=== PATIENT | male | born 1960 | race African-American/Black ===

== ENCOUNTER → 2024-03-02 15:28 | Outpatient (REF) | payer BC, SELFPAY | LOC: RAD 15:28 | PROVIDERS: ATTENDING PHYSICIAN Registered Nurse | DX: R06.09 Other forms of dyspnea (principal) | CPT/HCPCS: 71046 ==

== ENCOUNTER 2024-03-03 03:05 | Inpatient (IN) | payer BC, SELFPAY ==
[2024-03-02 22:39] VITALS: BP 84/61
[2024-03-02 22:57] LABS: % Basophils 0.4 % (0-2); % Eosinophils 0.3 % (0-6); % Immature Granulocytes 0.5 % (0-0.5); % Lymphocytes 3.3 % (20.5-51.1); % Monocytes 11.3 % (1.7-9.3); % Neutrophils 84.2 % (42.2-75.2); Absolute Basophils 0.1 10^3/uL (0-0.2); Absolute Immature Granulocytes 0.1 10^3/uL (0-0.05); Absolute Lymphocytes 0.4 10^3/uL (1.2-3.4); Absolute Monocytes 1.3 10^3/uL (0.1-0.6); Hematocrit 36.6 % (39.0-52.0); Hemoglobin 13.5 g/dL (13.0-18.0); Mean Corp Hgb Conc. 36.9 g/dL (33.0-37.0); Mean Corpuscular Hgb 29.5 pg (27.0-31.0); Mean Corpuscular Volume 80.1 fL (80.0-94.0); Mean Platelet Volume 9.6 fL (7.4-10.4); Nucleated Red Blood Cells % 0 % (-); Platelet Count 186 10^3/uL (130-400); Red Blood Cell Count 4.57 10^6/uL (4.70-6.10); Red Cell Dist. Width 13.6 % (11.5-14.5); White Blood Cell Count 11.9 10^3/uL (4.8-10.8)
[2024-03-02 23:00] VITALS: BP 106/64
[2024-03-02 23:10] LABS: Lactic Acid 1.1 mmol/L (0.7-2.0)
[2024-03-02 23:27] LABS: ALT (SGPT) 102 U/L (0-50); AST (SGOT) 131 U/L (17-59); Albumin 3.6 g/dl (3.5-5.0); Alkaline Phosphatase 81 U/L (38-126); Blood Urea Nitrogen 18 mg/dl (9-20); Calcium 8.9 mg/dl (8.4-10.2); Carbon Dioxide 24 mmol/L (22-30); Chloride 102 mmol/L (98-107); Glucose 183 mg/dl (70-99); Potassium 4.3 mmol/L (3.5-5.1); Sodium 134 mmol/L (135-145); Total Bilirubin 0.9 mg/dl (0.2-1.3); Total Protein 6.6 g/dl (6.3-8.2); eGFR > 60.00
[2024-03-02] MEDS: MOTRIN 800 MG PO (23:46)
--- NOTE | 2024-03-02 23:46 | ED.GENMED ---
History of Present Illness
General
Chief Complaint: Fever
Source: patient, spouse and previous radiology exam (Chest x-ray performed earlier today showing right lower lobe infiltrate)
Exam Limitations: none
Time Seen by Provider: 03/02/24 23:07
Nursing documentation reviewed up to this point in time: agreed with
History of Present Illness
History of Present Illness:
This is a 63-year-old gentleman who has history of pir-mmrxvry-lbjrwcnls diabetes, hypertension who complains of generalized aches, fatigue, intermittent headache that began 4 days ago. Symptoms have been progressive throughout the week and he was
evaluated by his primary care physician today, had outpatient blood work including a Lyme titer and had an outpatient chest x-ray done at the hospital today. He does admit to mild dry cough that began today but denies nasal congestion or sore
throat. No chest pain or abdominal pain, no dysuria no urgency and or hematuria. No flank pain. No nausea nor vomiting. He has not noticed a rash.
No close contacts with similar symptoms. No recent travel.
No history of similar episodes in the past.
He was unaware that he was running a fever until checking his temperature last night, he believes he has been running a fever since symptom onset on Tuesday.
He took Tylenol, 2 tablets at 9 PM tonight.
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 Gamboa. Has not required treatment as yet.
2 home COVID tests have been negative.
Past History
Past History
ED Past Medical History: Cancer (Smoldering multiple myeloma), HTN and NIDDM
ED Past Surgical History: None
Social History
Tobacco: Non-smoker
Alcohol: None
Drug: None
Personal:
Living: with family
Employment: Retired
Family History
Family History: Other (None retired)
Phy Exam
Physical Exam
Physical Exam:
GENERAL: 63-year-old gentleman appears somewhat younger than stated age, bright and alert, pleasant, appears in no acute distress. Moderately febrile, mild hypotension noted initially, has improved to 106/64. is accompanying.
EYE: pupils equal and reactive. anicteric
NECK: Supple, nontender, no meningismus, no significant adenopathy.
ENT: posterior pharynx is clear, oral mucosa is moist. TM clear b/l, nares patent.
CARDIAC: Regular rate and rhythm. no murmur.
LUNGS: no acute respiratory distress, mildly decreased breath sounds at bases with scant intermittent fine rales right base otherwise clear to auscultation.
ABDOMEN: Soft, nondistended, without focal tenderness, no r/g, no cvat. normoactive BS.
NEUROLOGICAL: Alert and oriented x3, no focal neuro deficits. Gait is steady.
SKIN: Warm and dry, normal color, skin intact. No rash.
MUSCULOSKELETAL: No C/C/E. peripheral pulses are full and equal b/l. No palpable tenderness.
PSYCH: Normal and appropriate interaction.
Course
Orders/Labs/Results
Orders:
Orders
03/02/24 22:46
Electrocardiogram (*1) Urgent
Reason for Study: Other
Other Reason for Exam: Possible Sepsis
EKG- Treatment ONCE
03/02/24 22:50
Complete Blood Count/With Diff Urgent
Comprehensive Metabolic Panel Urgent
Lactic Acid Q4H
Comment: ON ICE, CANCEL 2ND ORDER IF FIRST LACTIC ACID LEVEL <2
03/02/24 23:22
0.9% Sodium Chloride 1000 ml [Nss] 1,000 ml IV BOLUS
Ibuprofen [Motrin] 800 mg PO NOW STA
03/02/24 23:45
Azithromycin 500 mg/250 ml [Zithromax Infusion] 500 mg in 250 ml IV NOW
CefTRIAXone [Rocephin] 1,000 mg IV NOW STA
03/02/24 23:49
COVID-19 Antigen Urgent
Source: Nasal Swab
Urinalysis Reflex To Culture Urgent
Date Specimen was Collected: 03/02/24
Time Specimen was Collected: 23:22
Blood Culture Urgent
[place] Source: Blood/Venous
Specimen Description:
Influenza A+B Rapid Molecular Urgent
[place] Source: Nasal Swab
Specimen Description:
03/03/24 00:03
Sterile Water [Sterile Water For Injection] 10 ml .ROUTE .STK-MED ONE
03/03/24 01:36
NSS 1000mL Bolus WIDE OPEN 0.9% Sodium Chloride 1000 ml [Nss] 1,000 ml IV BOLUS
03/03/24 03:00
Lactic Acid Q4H
Comment: ON ICE, CANCEL 2ND ORDER IF FIRST LACTIC ACID LEVEL <2
Abnormal Lab Results
03/02/24
22:50
WBC 11.9 H 10^3/uL
(4.8-10.8)
RBC 4.57 L 10^6/uL
(4.70-6.10)
Hct 36.6 L %
(39.0-52.0)
Abs Immat Gran (auto) 0.1 H 10^3/uL
(0-0.05)
Absolute Neuts (auto) 10.0 H 10^3/uL
(1.4-6.5)
Absolute Lymphs (auto) 0.4 L 10^3/uL
(1.2-3.4)
Absolute Monos (auto) 1.3 H 10^3/uL
(0.1-0.6)
Neutrophils % 84.2 H %
(42.2-75.2)
Lymphocytes % 3.3 L %
(20.5-51.1)
Monocytes % 11.3 H %
(1.7-9.3)
Sodium 134 L mmol/L
(135-145)
Glucose 183 H mg/dl
(70-99)
AST 131 H U/L
(17-59)
ALT 102 H U/L
(0-50)
03/02/24 22:50
03/02/24 22:50
Vital Signs
Initial and Last Documented VS:
Initial Vital Signs
Temp Pulse Resp BP Pulse Ox
101.5 F H 90 24 84/61 95
03/02/24 22:39 03/02/24 22:39 03/02/24 22:39 03/02/24 22:39 03/02/24 22:39
Last Documented Vital Signs
Temp Pulse Resp BP Pulse Ox
99.1 F 78 33 97/62 94
03/03/24 01:26 03/03/24 00:45 03/03/24 00:45 03/03/24 00:30 03/03/24 00:45
MDM/Problems Addressed
Differential Diagnosis Includes:
Acute febrile illness, concern for SIRS/sepsis, pneumonia, viral syndrome, UTI.
History of multiple myeloma/early, thus far has not required treatment but certainly at risk for immunocompromise especially with history of diabetes as well.
Will check labs, blood culture, lactic acid, initiate IV fluid bolus and give a dose of ibuprofen for fever.
Will check COVID and influenza as well for completeness sake.
Outpatient chest x-ray performed earlier today shows a small right lower lobe infiltrate.
Chronic conditions affecting care: DM, HTN and Immunosuppressed (Multiple myeloma)
*Radiology
Radiology exam reviewed: radiology read reviewed (Chest x-ray from earlier today shows right lower lobe infiltrate)
*Pulse Oximetry
Patient hypoxic: no
*EKG
Interpreted by ED Provider?: Yes
Comparison EKG: no comparison EKG present
Rate: normal
Rhythm: sinus and PVC's
Leupp: normal axis
Interval: normal interval
QRS Pattern: other (Minimal nonspecific interventricular conduction delay)
Ischemia: no ischemia
*Supervisor [employer] Interpretation
Rate: normal
Interpretation: normal
Rhythm: sinus and PVC's
*Critical Care Note
Total Time (30-74mins, 75-104mins- exclusive of procedures): Not Applicable
Update Note
Update Note:
Labs show elevated white blood cell count of 11.9. Moderately elevated LFTs in the low 100s. Lactic acid is normal at 1.1.
COVID and influenza testing are negative as expected.
IV Rocephin and Zithromax initiated for treatment of community-acquired pneumonia.
Patient remains borderline hypotensive with systolic blood pressure in the 90s.
Fever improving.
Due to borderline hypotension we will continue IV fluids and plan to admit to hospitalist service.
ED Attending Note
-
Portions of this chart may have been created with voice recognition software.� Occasional wrong word or��sound alike� substitutions may have occurred due to the inherent limitations of voice recognition software.
Discharge Plan
Departure
Patient Disposition: Admit
Date of Disposition: 03/03/24
Time of Disposition: 01:41
Admit to: Med/Surg
Admit to doctor: Tayo
Presentation/result/management discussed w/ accepting MD/DO: Hospitalist
Condition: Serious
Discharge Problem:
CAP (community acquired pneumonia), SIRS (systemic inflammatory response syndrome)
Prescriptions:
No Action
atorvastatin 10 mg Tablet
10 mg PO DAILY
metformin 1,000 mg Tablet
500 mg PO BID
losartan 100 mg Tablet
100 mg PO DAILY
Referrals:
Myles Grant CRNP [Family Provider] -
Interventions
Interventions:
*Risk Screen - Suicide Last Done: 03/02/24 22:39
*General Assessment Last Done: 03/02/24 22:39
*Neglect/Abuse Screening Last Done: 03/02/24 22:39
ED- Fall Risk Assessment Last Done: 03/03/24 00:35
ED- Neurological Assessment Last Done: 03/03/24 00:35
ED-Skin Assessment Last Done: 03/03/24 00:35
Discharge Date and Time
Print Language: SLOVAK
[2024-03-03] VITALS (22 sets, daily range): BP systolic 94–147; BP diastolic 54–78; BMI 27.7
[2024-03-03] MEDS: NSS 1000 IV ×4 (00:07→14:45)
[2024-03-03] MEDS: ZITHROMAX INFUSION 250 IV (00:07)
[2024-03-03] MEDS: ROCEPHIN 1000 MG IV (00:07)
[2024-03-03 00:22] LABS: COVID-19 Antigen Negative (Negative)
[2024-03-03 01:38] LABS: Urine Albumin Trace (Neg - Trace); Urine Bilirubin Negative (Negative); Urine Character Clear (Clear); Urine Color Amber; Urine Glucose Negative (Negative); Urine Ketone Trace (Negative); Urine Leukocyte Trace (Negative); Urine Nitrite Negative (Negative); Urine Occult Blood Negative (Negative); Urine Specific Gravity 1.015 (<1.030); Urine Urobilinogen 1+ (Neg - 1+)
[2024-03-03 02:09] LABS: Urine Amorphous Seen; Urine Squamous Cell >30 /LPF (Few)
[2024-03-03 02:10] LABS: Urine Bacteria Moderate (Negative); Urine Granular Cast 0-1 /LPF (0); Urine Red Blood Cell 0-2 /HPF (0-2)
--- NOTE | 2024-03-03 02:53 | HPS.HSE ---
Family Physician
-
Family Physician: MAINE Mayer
Chief Complaint
-
Weakness / Fatigue / Fever
History of Present Illness
Patient is a 63y M with PMH significant for hypertension, DM-II and smoldering myeloma who presents to ED complaining of weakness, fatigue x 1 week and fever / cough starting today. Patient states that he has felt very fatigued all week. He has
been going to be around 7 PM nightly. He initially had no other symptoms including sore throat, cough, fever, GI or complaints. He was seen by his PCP and labs / CXR were requested. CXR showed R base infiltrate and patient was started on
azithromycin and Augmentin (first doses today).
Patient continued to feel poorly this evening and had fever at home to 102. He began to have hacking,non-productive cough and presented to the ED for evaluation.
Medical History
Past Medical History
Past Medical History: Reports Other
Additional Past Medical History:
DM-II
Hypertension
Smoldering Myeloma
Discoid Lupus
Sickle Cell Trait
Past Surgical History: Reports Other
Additional Past Surgical History:
Bone Marrow Biopsy
Cataracts
Social History
Tobacco: Non-smoker
Alcohol: Occasional
Drug: None
Personal:
Living: With Family
Family History
Family History: Other (Father: HTN, Kidney Disease, CHF Mother: Myeloma, Kidney Disease, CHF)
Allergies / Home Medications
Allergies reflects when Allergies were last updated in [employer].
Home Medications with original date entered in [employer]
Allergy/Medication List:
Allergies
Allergy/AdvReac Type Severity Reaction Status Date / Time
No Known Allergies Allergy Unverified 03/02/24 22:45
Home Medications
atorvastatin 10 mg tablet 10 mg PO DAILY 03/03/24
losartan 100 mg tablet 100 mg PO DAILY 03/03/24
metformin 1,000 mg tablet 500 mg PO BID 03/03/24
Review of Systems
-
History Source: Patient
A 12 point ROS was completed and negative except as noted: Yes
Constitutional: Reports Fever, Fatigue and Chills
EENT: Denies Sore Throat
Respiratory: Reports Cough; Denies Hemoptysis or Trouble Breathing
Cardiac: Denies Chest Pain or Palpitations
Abdomen/GI: Denies Abdominal Pain, Nausea, Vomiting or Diarrhea
: Denies Dysuria, Frequency or Flank Pain
Musculoskeletal: Denies Joint Pain or Muscle Pain
Neurological: Reports Headache; Denies Dizzy
Psych: Denies Depression or Anxiety
Physical Exam
Vital Signs
Vital Signs
Temp Pulse Resp BP Pulse Ox
99.1 F 71 20 96/61 96
03/03/24 01:26 03/03/24 02:45 03/03/24 02:45 03/03/24 02:30 03/03/24 02:45
Physical Exam
General: Other (63y M in no acute distress.)
HEENT: Moist mucous membranes and PERRLA
Respiratory: Other (Coarse breath sounds over the R base. No wheezing.)
Cardiac: S1/S2 and Regular Rhythm; No Murmur
GI: Soft, Non Tender, Non Distended and Normal Bowel Sounds
Musculoskeletal: No Clubbing, No Cyanosis and No Edema
Neuro: AO x 3
Laboratory Results
-
03/02/24 22:50
03/02/24 22:50
Laboratory Results
Lactic Acid 1.1 mmol/L (0.7-2.0) 03/02/24 22:50
Total Bilirubin 0.9 mg/dl (0.2-1.3) 03/02/24 22:50
AST 131 U/L (17-59) H 03/02/24 22:50
ALT 102 U/L (0-50) H 03/02/24 22:50
Alkaline Phosphatase 81 U/L (38-126) 03/02/24 22:50
Impression/Plan
-
A/P: Patient is a 63y M with PMH significant for hypertension, DM-II and smoldering myeloma who presents to ED complaining of fatigue, fever and cough.
RLL Pneumonia
Sepsis secondary to the above
- Admit for further evaluation and treatment.
- Patient presents with fever, leukocytosis and tachypnea with CXR showing R base pneumonia.
- Borderline hypotensive in the ED.
- IV abx for CAP.
- IVF support.
- Supportive care including nebs, mucolytics, etc.
- Follow for clinical improvement and transition back to PO medications once afebrile / BP stable / etc.
- Follow for any new / worsening symptoms.
DM-II
- Stable. Hold PO meds acutely.
- Follow glucose and cover with SSI as needed.
- Update A1C.
Benign Hypertension
- Presently somewhat hypotensive due to infection / sepsis.
- Hold losartan acutely.
- Resume if / when appropriate.
Smoldering Myeloma
- Stable. Followed at [facility]. Not on active therapy at this time.
- Follow-up with [facility] Oncology as planned.
Abnormal LFTs
- ? etiology. ? chronicity
- No prior labs to compare.
- Potentially related to acute presentation / infection.
- No GI symptoms at present.
- Follow for changes in LFTs.
DVT Prophylaxis: Lovenox
Code Status: Full
[2024-03-03] MEDS: MUCINEX 1200 MG PO ×2 (09:19→20:14)
[2024-03-03] MEDS: VIBRAMYCIN 100 MG PO ×2 (09:19→20:14)
[2024-03-03] MEDS: LIPITOR 10 MG PO (09:20)
[2024-03-03 09:26] LABS: Glucose - Point of Care 174 mg/dl (70-99)
[2024-03-03] MEDS: TYLENOL 650 MG PO ×2 (09:30→17:13)
[2024-03-03] MEDS: NOVOLOG FLEXPEN-LOW RESISTANCE SC ×3 (10:00→18:10)
--- NOTE | 2024-03-03 10:08 | W.PN.HOSP.TC ---
Today's Communication/Plan
-
Continue IV antibiotics pending cultures
Hold antihypertensive monitoring for recurrent hypotension
Continue IV fluids
Incentive spirometry.
Follow LFT pattern.
Assessment / Plan
Assessment / Plan
Impression:
Patient is a 63y M with PMH significant for hypertension, DM-II and smoldering myeloma who presents to ED complaining of fatigue, fever and cough.
Right lower lobe pneumonia, community-acquired
Sepsis secondary to above
Type 2 diabetes.
Benign hypertension.
Smoldering myeloma under surveillance.
Abnormal LFTs.
Plan
RLL Pneumonia
Sepsis secondary to the above
- Admit for further evaluation and treatment.
- Patient presents with fever, leukocytosis and tachypnea with CXR showing R base pneumonia.
- Borderline hypotensive in the ED.
- IV abx for CAP.
- IVF support.
- Supportive care including nebs, mucolytics, etc.
- Follow for clinical improvement and transition back to PO medications once afebrile / BP stable / etc.
- Follow for any new / worsening symptoms.
DM-II
- Stable. Hold PO meds acutely.
- Follow glucose and cover with SSI as needed.
- Update A1C.
Benign Hypertension
- Presently somewhat hypotensive due to infection / sepsis.
- Hold losartan acutely.
- Resume if / when appropriate.
Smoldering Myeloma
- Stable. Followed at [facility]. Not on active therapy at this time.
- Follow-up with [facility] Oncology as planned.
Abnormal LFTs
- ? etiology. ? chronicity
- No prior labs to compare.
- Potentially related to acute presentation / infection.
- No GI symptoms at present.
- Follow for changes in LFTs.
DVT Prophylaxis: Lovenox
Code Status: Full
Anticipated Discharge: 24 - 48 hours
Subjective/Interval History
-
Date of Service: March 03, 2024
Objective Data
-
Labs:
Laboratory Results
03/02/24
22:50
WBC 11.9 H
Hgb 13.5
Hct 36.6 L
Plt Count 186
Sodium 134 L
Potassium 4.3
Chloride 102
Carbon Dioxide 24
BUN 18
Creatinine 1.1
Glucose 183 H
Calcium 8.9
Total Bilirubin 0.9
AST 131 H
ALT 102 H
Alkaline Phosphatase 81
Vital Signs:
Vital Signs
Temp Pulse Resp BP Pulse Ox
98.8 F 68 28 111/74 95
03/03/24 09:13 03/03/24 09:13 03/03/24 09:13 03/03/24 09:13 03/03/24 10:03
Physical Exam
-
General: Well Developed and No Apparent Distress
HEENT: Normocephalic, Atraumatic and Moist Mucous Membranes
Respiratory: Other (Bronchial breath sounds at the right base.)
Cardiac: Regular Rhythm and S1/S2; Negative Murmur, Rub or Gallop
GI: Soft, Nontender, Nondistended and Normal Bowel Sounds; Negative Organomegaly
Rectal: Deferred by Provider
Musculoskeletal: No Clubbing, No Cyanosis and No Edema
Skin: Negative Rash
Neuro: Nonfocal/Grossly Intact
[2024-03-03 13:06] LABS: Glucose - Point of Care 132 mg/dl (70-99)
--- NOTE | 2024-03-03 16:25 | PTCARENOTE ---
Report called to Felipe on 3W. Patient continues to feel weak and not much of an appetite. Patient ambulating in room with supervision.
[2024-03-03] MEDS: LOVENOX 40 MG SC (17:13)
[2024-03-03 17:21] LABS: Glucose - Point of Care 157 mg/dl (70-99)
[2024-03-03 21:07] LABS: Glucose - Point of Care 163 mg/dl (70-99)
[2024-03-04] MEDS: ROCEPHIN 1000 MG IV (00:30)
[2024-03-04] MEDS: STERILE WATER FOR INJECTION 10 ML IV (00:31)
[2024-03-04] MEDS: NSS 1000 IV (02:15)
[2024-03-04 03:08] VITALS: BP 116/67
[2024-03-04 06:00] VITALS: BMI 27.6
[2024-03-04 07:04] LABS: Hematocrit 33.9 % (39.0-52.0); Hemoglobin 12.4 g/dL (13.0-18.0); Mean Corp Hgb Conc. 36.6 g/dL (33.0-37.0); Mean Corpuscular Hgb 29.9 pg (27.0-31.0); Mean Corpuscular Volume 81.7 fL (80.0-94.0); Mean Platelet Volume 10.3 fL (7.4-10.4); Platelet Count 211 10^3/uL (130-400); Red Blood Cell Count 4.15 10^6/uL (4.70-6.10); Red Cell Dist. Width 13.9 % (11.5-14.5); White Blood Cell Count 10.7 10^3/uL (4.8-10.8)
[2024-03-04 07:10] VITALS: BP 123/74
[2024-03-04 07:10] LABS: Glucose - Point of Care 143 mg/dl (70-99)
[2024-03-04 07:27] LABS: Blood Urea Nitrogen 18 mg/dl (9-20); Carbon Dioxide 21 mmol/L (22-30); Chloride 107 mmol/L (98-107); Estimated Creatinine Clearance 75 ml/min; Glucose 137 mg/dl (70-99); Potassium 4.1 mmol/L (3.5-5.1); Sodium 137 mmol/L (135-145); eGFR > 60.00
[2024-03-04] MEDS: NOVOLOG FLEXPEN-LOW RESISTANCE SC ×2 (08:03→17:19)
[2024-03-04] MEDS: MUCINEX 1200 MG PO ×2 (08:08→20:48)
[2024-03-04] MEDS: VIBRAMYCIN 100 MG PO ×2 (08:08→20:48)
[2024-03-04] MEDS: LIPITOR 10 MG PO (08:08)
[2024-03-04 11:00] VITALS: BP 135/71
--- NOTE | 2024-03-04 11:32 | W.PN.HOSP.TC ---
Today's Communication/Plan
-
recheck CXR in AM
cont rocephin/doxy
Assessment / Plan
Assessment / Plan
Impression:
Patient is a 63y M with PMH significant for hypertension, DM-II and smoldering myeloma who presents to ED complaining of fatigue, fever and cough.
Right lower lobe pneumonia, community-acquired
Sepsis secondary to above
Type 2 diabetes.
Benign hypertension.
Smoldering myeloma under surveillance.
Abnormal LFTs.
Plan
03/05/24 -- cont rocephin/doxy--tubular breath sounds on exam--recheck CXR in AM--stop IVF--cough meds if needed
RLL Pneumonia
Sepsis secondary to the above
- Admit for further evaluation and treatment.
- Patient presents with fever, leukocytosis and tachypnea with CXR showing R base pneumonia.
- Borderline hypotensive in the ED.
- IV abx for CAP.
- IVF support.
- Supportive care including nebs, mucolytics, etc.
- Follow for clinical improvement and transition back to PO medications once afebrile / BP stable / etc.
- Follow for any new / worsening symptoms.
DM-II
- Stable. Hold PO meds acutely.
- Follow glucose and cover with SSI as needed.
- Update A1C.
Benign Hypertension
- Presently somewhat hypotensive due to infection / sepsis.
- Hold losartan acutely.
- Resume if / when appropriate.
Smoldering Myeloma
- Stable. Followed at [facility]. Not on active therapy at this time.
- Follow-up with [facility] Oncology as planned.
Abnormal LFTs
- ? etiology. ? chronicity
- No prior labs to compare.
- Potentially related to acute presentation / infection.
- No GI symptoms at present.
- Follow for changes in LFTs.
DVT Prophylaxis: Lovenox
Code Status: Full
Anticipated Discharge: Within 24 hours
Subjective/Interval History
-
Date of Service: March 04, 2024
pt c/o being cold and doesn't feel well, nonproductive cough
Objective Data
-
Labs:
Laboratory Results
03/04/24
05:40
WBC 10.7
Hgb 12.4 L
Hct 33.9 L
Plt Count 211
Sodium 137
Potassium 4.1
Chloride 107
Carbon Dioxide 21 L
BUN 18
Creatinine 1.0
Glucose 137 H
Calcium 8.0 L
Vital Signs:
max temp for 24 hours
03/03/24
16:43
Temp 102.9 F H
Vital Signs
Temp Pulse Resp BP Pulse Ox
100.9 F H 68 18 123/74 96
03/04/24 07:10 03/04/24 07:10 03/04/24 07:10 03/04/24 07:10 03/04/24 07:10
I&O
03/03/24 03/04/24 03/05/24
06:59 06:59 06:59
Intake Total 240 / 240
Output Total 420 / 420
Balance -180 / -180
Review of Systems
-
All other systems: Reviewed and negative
Constitutional: Reports Chills
Respiratory: Reports Cough (nonprodective)
Physical Exam
-
General: Well Developed, Well Nourished and No Apparent Distress
HEENT: Normocephalic and Atraumatic
Respiratory: Other (tubular breath sounds right lung field)
Cardiac: Regular Rhythm and S1/S2; Negative Murmur
GI: Soft, Nontender, Nondistended and Normal Bowel Sounds
Musculoskeletal: No Clubbing, No Cyanosis and No Edema
Neuro: Awake and Alert
[2024-03-04] MEDS: NSS IV (11:34)
[2024-03-04 11:48] LABS: Glucose - Point of Care 228 mg/dl (70-99)
[2024-03-04] MEDS: NOVOLOG FLEXPEN-LOW RESISTANCE 2 UNITS SC (12:36)
--- NOTE | 2024-03-04 14:34 | PTCARENOTE ---
Pt is alert and oriented x3. Denies any pain. Tolerating diet well. Pt is just a standby assist, rings appropriately. Pt with no complaints other than feeling fatigued. Pt continues on 2L O2 NC, trialed off but O2 91% RA. VSS. Pt with no complaints
at this time. Call paige is within reach.
--- NOTE | 2024-03-04 14:57 | CM ---
Met with patient; initial assessment completed
Pharmacy verified: [facility], [address], [place]
Patient and spouse live in a multilevel home; 3 steps to enter; 20 steps up to Loft; bedroom and bath on the 1st floor; bath has tub w/shower
PLOF: independent with ambulation, stairs, ADLs; drives
DME: [employer]
Transportation: will provide ride home
SNF/Home Health History: none
Plan: discharge to home within 24 hours if medically stable; no needs
[2024-03-04] MEDS: TYLENOL 650 MG PO (15:10)
[2024-03-04 15:15] VITALS: BP 126/67
[2024-03-04] MEDS: LOVENOX 40 MG SC (17:00)
[2024-03-04 17:17] LABS: Glucose - Point of Care 137 mg/dl (70-99)
[2024-03-04 19:00] VITALS: BP 142/78
[2024-03-04 21:44] LABS: Glucose - Point of Care 134 mg/dl (70-99)
[2024-03-04 23:00] VITALS: BP 136/82
[2024-03-05] MEDS: ROCEPHIN 1000 MG IV (01:10)
[2024-03-05] MEDS: STERILE WATER FOR INJECTION 10 ML IV (01:10)
[2024-03-05] MEDS: TYLENOL 650 MG PO (02:25)
[2024-03-05 03:00] VITALS: BP 137/82
[2024-03-05 05:55] LABS: Hematocrit 34.1 % (39.0-52.0); Hemoglobin 12.2 g/dL (13.0-18.0); Mean Corp Hgb Conc. 35.8 g/dL (33.0-37.0); Mean Corpuscular Volume 83.8 fL (80.0-94.0); Mean Platelet Volume 9.5 fL (7.4-10.4); Platelet Count 225 10^3/uL (130-400); Red Blood Cell Count 4.07 10^6/uL (4.70-6.10); White Blood Cell Count 13.6 10^3/uL (4.8-10.8)
[2024-03-05 06:00] VITALS: BMI 27.5
[2024-03-05 06:23] LABS: ALT (SGPT) 201 U/L (0-50); AST (SGOT) 329 U/L (17-59); Albumin 2.6 g/dl (3.5-5.0); Alkaline Phosphatase 77 U/L (38-126); Blood Urea Nitrogen 21 mg/dl (9-20); Calcium 8.3 mg/dl (8.4-10.2); Carbon Dioxide 25 mmol/L (22-30); Chloride 108 mmol/L (98-107); Estimated Creatinine Clearance 68 ml/min; Glucose 148 mg/dl (70-99); Magnesium 2.3 mg/dl (1.6-2.3); Potassium 4.4 mmol/L (3.5-5.1); Sodium 139 mmol/L (135-145); Total Bilirubin 0.5 mg/dl (0.2-1.3); Total Protein 5.2 g/dl (6.3-8.2); eGFR > 60.00
[2024-03-05 07:00] VITALS: BP 138/75
[2024-03-05] MEDS: MUCINEX 1200 MG PO ×2 (07:45→19:32)
[2024-03-05] MEDS: LIPITOR 10 MG PO (07:45)
[2024-03-05] MEDS: VIBRAMYCIN 100 MG PO ×2 (07:45→19:32)
[2024-03-05 08:26] LABS: Glucose - Point of Care 135 mg/dl (70-99)
[2024-03-05] MEDS: NOVOLOG FLEXPEN-LOW RESISTANCE SC ×2 (08:35→17:30)
--- NOTE | 2024-03-05 09:04 | W.PN.HOSP.TC ---
Addendum entered and electronically signed by Sanjay Clark MD 03/06/24 11:27:
Correction, continue Rocephin/doxycycline D3
Original Note:
Today's Communication/Plan
-
see bold
Assessment / Plan
Assessment / Plan
Impression:
Patient is a 63y M with PMH significant for hypertension, DM-II and smoldering myeloma who presents to ED complaining of fatigue, fever and cough.
RLL Pneumonia
Sepsis secondary to the above
- Patient presents with fever, leukocytosis and tachypnea with CXR showing R base pneumonia.
- Influenza negative, COVID-negative, blood culture negative
- Continue Rocephin/azithromycin D3
Acute hypoxic respiratory insufficiency
- Currently requiring 2 L of oxygen, wean as tolerated
DM-II
- A1C 7
- Resume metformin, continue SSI
Benign Hypertension
- Resume losartan
Smoldering Myeloma
- Stable. Followed at [facility]. Not on active therapy at this time.
- Follow-up with [facility] Oncology as planned.
Abnormal LFTs
- ? etiology. ? chronicity
- No prior labs to compare.
- Potentially related to acute presentation / infection.
- No GI symptoms at present.
- Follow for changes in LFTs.
DVT Prophylaxis: Lovenox
Code Status: Full
Total time spent to see the patient on the floor, examine the patient, review data and lab results, discuss treatment plan with patient, nursing staff around 51 minutes.
Physical Exam
General: No acute distress
HEENT: Normocephalic, Atraumatic, EOMI, MMM
Respiratory: Clear to Auscultation bilaterally
Cardiac: Normal S1/S2, Regular Rate and Rhythm
GI: Soft, Nontender, Nondistended, Normal Bowel Sounds
Extremities: No Clubbing, Cyanosis, or Edema
Neuro: Nonfocal/Grossly Intact
Psych: Calm, Cooperative
Derm: No Visible lesions
Anticipated Discharge: Within 24 hours
Subjective/Interval History
-
Date of Service: March 05, 2024
Patient reports shortness of breath and cough are improved. No fever, no vomiting.
Objective Data
-
Labs:
Laboratory Results
03/05/24
05:35
WBC 13.6 H
Hgb 12.2 L
Hct 34.1 L
Plt Count 225
Sodium 139
Potassium 4.4
Chloride 108 H
Carbon Dioxide 25
BUN 21 H
Creatinine 1.1
Glucose 148 H
Calcium 8.3 L
Total Bilirubin 0.5
AST 329 H
ALT 201 H
Alkaline Phosphatase 77
Vital Signs:
Vital Signs
Temp Pulse Resp BP Pulse Ox
97.4 F 53 17 138/75 93
03/05/24 07:00 03/05/24 07:00 03/05/24 07:00 03/05/24 07:00 03/05/24 07:00
I&O
03/04/24 03/05/24 03/06/24
06:59 06:59 06:59
Intake Total 240 / 240 960 / 960
Output Total 420 / 420 200 / 200
Balance -180 / -180 760 / 760
[2024-03-05 11:00] VITALS: BP 150/86
[2024-03-05 12:00] LABS: Glucose - Point of Care 172 mg/dl (70-99)
[2024-03-05] MEDS: NOVOLOG FLEXPEN-LOW RESISTANCE 1 UNITS SC (12:52)
[2024-03-05 15:00] VITALS: BP 150/80
[2024-03-05] MEDS: COZAAR 100 MG PO (16:09)
[2024-03-05 17:14] LABS: Glucose - Point of Care 135 mg/dl (70-99)
--- NOTE | 2024-03-05 17:16 | CM ---
Case management following for d/c planning
Chart reviewed
RLL pneumonia - antibiotics
Supplemental O2
Case management will follow for d/c needs
Plan - anticipate home no needs
[2024-03-05] MEDS: GLUCOPHAGE 500 MG PO (17:41)
[2024-03-05] MEDS: LOVENOX 40 MG SC (17:43)
[2024-03-05 19:00] VITALS: BP 111/69
[2024-03-05 21:41] LABS: Glucose - Point of Care 185 mg/dl (70-99)
[2024-03-05 23:00] VITALS: BP 136/81
[2024-03-06] MEDS: STERILE WATER FOR INJECTION 10 ML IV (00:06)
[2024-03-06] MEDS: ROCEPHIN 1000 MG IV (00:06)
[2024-03-06 03:00] VITALS: BP 139/76
[2024-03-06 06:00] VITALS: BMI 27.3
[2024-03-06 06:08] LABS: Hematocrit 36.3 % (39.0-52.0); Hemoglobin 13.1 g/dL (13.0-18.0); Mean Corp Hgb Conc. 36.1 g/dL (33.0-37.0); Mean Corpuscular Volume 83.1 fL (80.0-94.0); Mean Platelet Volume 9.5 fL (7.4-10.4); Platelet Count 260 10^3/uL (130-400); Red Blood Cell Count 4.37 10^6/uL (4.70-6.10); White Blood Cell Count 10.5 10^3/uL (4.8-10.8)
[2024-03-06 06:39] LABS: ALT (SGPT) 355 U/L (0-50); AST (SGOT) 497 U/L (17-59); Albumin 2.7 g/dl (3.5-5.0); Alkaline Phosphatase 87 U/L (38-126); Blood Urea Nitrogen 21 mg/dl (9-20); Calcium 8.7 mg/dl (8.4-10.2); Carbon Dioxide 27 mmol/L (22-30); Chloride 109 mmol/L (98-107); Estimated Creatinine Clearance 68 ml/min; Glucose 133 mg/dl (70-99); Potassium 4.6 mmol/L (3.5-5.1); Sodium 141 mmol/L (135-145); Total Bilirubin 0.6 mg/dl (0.2-1.3); Total Protein 5.5 g/dl (6.3-8.2); eGFR > 60.00
[2024-03-06 07:05] LABS: Hepatitis B Surface Antigen Negative (Negative)
[2024-03-06 07:10] LABS: Hepatitis B Core Ab, IgM Negative (Negative)
[2024-03-06 07:22] LABS: Hepatitis C Antibody Negative (Negative)
[2024-03-06 07:55] VITALS: BP 156/83
[2024-03-06 07:55] LABS: Glucose - Point of Care 135 mg/dl (70-99)
[2024-03-06] MEDS: COZAAR 100 MG PO (07:56)
[2024-03-06] MEDS: MUCINEX 1200 MG PO ×2 (07:56→20:18)
[2024-03-06] MEDS: LIPITOR 10 MG PO (07:57)
[2024-03-06] MEDS: GLUCOPHAGE 500 MG PO ×2 (07:57→18:10)
[2024-03-06] MEDS: VIBRAMYCIN 100 MG PO (07:57)
[2024-03-06] MEDS: NOVOLOG FLEXPEN-LOW RESISTANCE SC ×3 (07:59→16:53)
--- NOTE | 2024-03-06 08:38 | W.PN.HOSP.TC ---
Today's Communication/Plan
-
Consult GI
Assessment / Plan
Assessment / Plan
Impression:
Patient is a 63y M with PMH significant for hypertension, DM-II and smoldering myeloma who presents to ED complaining of fatigue, fever and cough.
RLL Pneumonia
Sepsis secondary to the above
- Patient presents with fever, leukocytosis and tachypnea with CXR showing R base pneumonia.
- Influenza negative, COVID-negative, blood culture negative
- Improving on Rocephin/doxycycline, will change Rocephin to cefdinir
- Discontinue doxycycline as it can cause hepatotoxicity
Acute hypoxic respiratory insufficiency
- Resolved, currently on room air
DM-II
- A1C 7
- Resumed metformin, continue SSI
Benign Hypertension
- Resumed losartan
Smoldering Myeloma
- Stable. Followed at [facility]. Not on active therapy at this time.
- Follow-up with [facility] Oncology as planned.
Abnormal LFTs
- Possibly due to infection versus drug-induced liver injury
- Hepatitis panel negative, abdominal ultrasound negative
- Discontinue doxycycline, consult GI
DVT Prophylaxis: Lovenox
Code Status: Full
Updated on phone 03/06
Total time spent to see the patient on the floor, examine the patient, review data and lab results, discuss treatment plan with patient, nursing staff around 50 minutes.
Physical Exam
General: No acute distress
HEENT: Normocephalic, Atraumatic, EOMI, MMM
Respiratory: Clear to Auscultation bilaterally
Cardiac: Normal S1/S2, Regular Rate and Rhythm
GI: Soft, Nontender, Nondistended, Normal Bowel Sounds
Extremities: No Clubbing, Cyanosis, or Edema
Neuro: Nonfocal/Grossly Intact
Psych: Calm, Cooperative
Derm: No Visible lesions
Anticipated Discharge: Within 24 hours
Subjective/Interval History
-
Date of Service: March 06, 2024
Patient shortness of breath resolved. He continues to have a cough. Fever resolved. No vomiting.
Objective Data
-
Labs:
Laboratory Results
03/06/24
05:24
WBC 10.5
Hgb 13.1
Hct 36.3 L
Plt Count 260
Sodium 141
Potassium 4.6
Chloride 109 H
Carbon Dioxide 27
BUN 21 H
Creatinine 1.1
Glucose 133 H
Calcium 8.7
Total Bilirubin 0.6
AST 497 H
ALT 355 H
Alkaline Phosphatase 87
Vital Signs:
Vital Signs
Temp Pulse Resp BP Pulse Ox
98.7 F 58 28 139/76 96
03/06/24 07:55 03/06/24 07:56 03/06/24 07:55 03/06/24 07:56 03/06/24 07:55
I&O
03/05/24 03/06/24 03/07/24
06:59 06:59 06:59
Intake Total 960 / 960 800 / 800
Output Total 200 / 200
Balance 760 / 760 800 / 800
--- NOTE | 2024-03-06 11:43 | CM ---
Case management following for d/c planning
Chart reviewed, met with pt
Possible d/c today
Has ride home with
Plan - anticipate home no needs
[2024-03-06 12:16] LABS: Glucose - Point of Care 131 mg/dl (70-99)
[2024-03-06] MEDS: OMNICEF 300 MG PO ×2 (12:21→20:18)
--- NOTE | 2024-03-06 14:31 | CON.GI ---
Addendum entered and electronically signed by Fatoumata Weiner Do, MD 03/06/24 19:00:
I saw and examined the patient.
The EVAPORATOR's note was reviewed and I agree with the note.
Comment: Wes is a 63yo M with h/o DM2 and multiple myeloma who was admitted with fever and weakness. Found to have PNA. GI consulted for elevated LFTs. Vitals stable but was hypotensive upon admission. NTTP NABS. Abd US not remarkable.
Impression
- Elevated LFT
ddx includes DILI, hypotension related less like viral hepatitis
- PNA
- DM2
- Multiple myeloma
Recommendations
- Viral hepatitis, SHAWN and viral studies (monospot) pending
- Serial LFTs
- Continue to hold statin
- IF downtrends anticipate d/c with LFTs in 1 wk time
Will follow with you
Original Note:
Consultation
-
Date/Time Consultation Requested: 03/06/24 @ 11:24
Date/Time Consultation Performed: 03/06/24 @ 14:30
Requesting Provider: Dr. Clark
Performing Provider: MAINE Thomson; Dr. Fatoumata Clark
Reason for Consultation: elevated LFT's
Medical History
Chief Complaint / HPI
Chief Complaint: fever, weakness, fatigue
History of Present Illness:
The patient is a 63-year-old male with a past medical history significant for hypertension, type 2 diabetes, multiple myeloma, sickle cell trait carrier, discoid lupus, who presented to the emergency room with complaints of weakness, fatigue, and
fevers. We are being asked to evaluate for abnormal LFTs. The patient reports that all last week he was feeling very fatigued and rundown. He had felt progressively worse with development of fevers and a cough. He reports seeing his PCP who had
ordered a chest x-ray which showed a right lower lobe pneumonia. Labs were also done outpatient and he was placed on a course of Augmentin along with Zithromax. He continued with ongoing symptoms and therefore went to the ER for further
evaluation. He reports he was taking Tylenol since evening every 4 hours, but only did this for about 24 hours before coming to the emergency room. He reports fevers as high as 102 along with chills. He also had some mild diarrhea
otherwise no change in bowel habits. He was having some shortness of breath prior to admission and had a low oxygen saturation but this has resolved. He otherwise denies any abdominal pain, nausea, vomiting, chest pain, unintentional weight loss,
or loss of appetite. He does report that he drinks alcohol socially on the weekends. He denies any history of liver disease or hepatitis. He denies any abnormalities of his liver enzymes in the past. Labs reviewed on our outpatient system
showing normal LFTs last year in August and November. He denies any new medications aside from antibiotics that were started on Tuesday by his PCP. He reports taking 1-2 doses prior to coming to the ER. He does admit to history of pneumonia remotely
in the past. He denies any recent travel or recent sick contacts. He does spend some time outside. He follows with Dr. Gamboa from [place] for his multiple myeloma management. He reports having a colonoscopy at some point in the last 5 to 10
years but is unsure of the exact date. He notes he has had polyps in the past. He denies any prior EGD. He denies any family history of colon cancer or liver cancer. He denies use of blood thinners or NSAIDs. Upon evaluation, he was started
with treatment for right lower lobe pneumonia with Rocephin and doxycycline. He was hypotensive on admission and received IV fluids which improved his blood pressure. He had Lyme disease testing outpatient which was negative. Since admission has
had uptrending liver enzymes, therefore he underwent an ultrasound of the abdomen which was unremarkable. Blood cultures were sent which are negative to date. Viral swab for influenza was negative. Urine culture was also sent which is negative.
Routine labs today showing WBC 10.5, hemoglobin 13.1, platelets 260,000, sodium 141, potassium 4.6, BUN 21, creatinine 1.1, total bilirubin 0.6, AST 497, ALT 355, alk phos 87, total protein 5.5, albumin 2.7. Hepatitis B and C serologies were
negative. COVID swab was negative. Due to uptrending LFT's we were asked to weigh in.
Past Medical History
Past Medical History: HTN, NIDDM and Other (Sickle cell trait (carrier), Myeloma, discoid lupus)
Past Surgical History: None (bone marrow bx)
Social History
Tobacco: Non-Smoker
Alcohol: Occasional
Drug: None
Family History
Family History: Reviewed & Not Pertinent
Allergies / Home Medications
Allergy/AdvReac Type Severity Reaction Status Date / Time
No Known Allergies Allergy Unverified 03/02/24 22:45
�Medication �Instructions �Recorded
atorvastatin 10 mg tablet 10 mg PO DAILY High Cholesterol 03/03/24
losartan 100 mg tablet 100 mg PO DAILY Blood Pressure 03/03/24
metformin 1,000 mg tablet 500 mg PO BID Diabetes 03/03/24
Review of Systems
-
History Source: Patient
Constitutional: Reports Fever, Fatigue and Chills
EENT: Reports No Symptoms
Respiratory: Reports Cough and Trouble Breathing (resolved)
Cardiac: Reports No Symptoms
Abdomen/GI: Reports Diarrhea (resolved)
: Reports No Symptoms
Musculoskeletal: Reports No Symptoms
Skin: Reports No Symptoms
Neurological: Reports Weakness (generalized)
Vital Signs
Temp Pulse Resp BP Pulse Ox
98.7 F 58 28 139/76 96
03/06/24 07:55 03/06/24 07:56 03/06/24 07:55 03/06/24 07:56 03/06/24 07:55
Physical Exam
Exam
General: Well Developed, Well Nourished, No Apparent Distress and Comfortable
HEENT: Normocephalic, Anicteric and Atraumatic
Respiratory: Clear (diminished bilateral lower lobes)
Cardiac: S1/S2 and Regular Rhythm
Breast: N/A
GI: Soft, Non Tender, Non Distended and Normal Bowel Sounds
Rectal: Deferred by Provider
Musculoskeletal: No Edema
Skin: Warm and Dry
Neuro: Awake, Alert and Oriented
Results
WBC 10.5 10^3/uL (4.8-10.8) 03/06/24 05:24
Hgb 13.1 g/dL (13.0-18.0) 03/06/24 05:24
Hct 36.3 % (39.0-52.0) L 03/06/24 05:24
MCV 83.1 fL (80.0-94.0) 03/06/24 05:24
Plt Count 260 10^3/uL (130-400) 03/06/24 05:24
Absolute Neuts (auto) 10.0 10^3/uL (1.4-6.5) H 03/02/24 22:50
Sodium 141 mmol/L (135-145) 03/06/24 05:24
Potassium 4.6 mmol/L (3.5-5.1) 03/06/24 05:24
Chloride 109 mmol/L (98-107) H 03/06/24 05:24
Carbon Dioxide 27 mmol/L (22-30) 03/06/24 05:24
BUN 21 mg/dl (9-20) H 03/06/24 05:24
Creatinine 1.1 mg/dL (0.7-1.3) 03/06/24 05:24
Calcium 8.7 mg/dl (8.4-10.2) 03/06/24 05:24
Total Bilirubin 0.6 mg/dl (0.2-1.3) 03/06/24 05:24
AST 497 U/L (17-59) H 03/06/24 05:24
ALT 355 U/L (0-50) H 03/06/24 05:24
Alkaline Phosphatase 87 U/L (38-126) 03/06/24 05:24
Hep B Core IgM Ab Negative (Negative) 03/06/24 05:24
Hepatitis C Antibody Negative (Negative) 03/06/24 05:24
Diagnostic Image Results:
03/02/24 CXR: Right basilar airspace disease suspicious for pneumonia.
03/06/24 US abdomen: unremarkable
Prior GI Procedures:
EGD: none
Colonoscopy: >5 years ago out of the [facility] with hx polyps (report not available to me)
Assessment / Plan
-
The patient is a 63-year-old male with a past medical history significant for hypertension, type 2 diabetes, multiple myeloma, sickle cell trait carrier, discoid lupus, who presented to the emergency room with complaints of weakness, fatigue, and
fevers evaluated outpatient for findings of right lower lobe pneumonia, but with worsening symptoms admitted to the hospital for further evaluation and treatment. He was started on IV antibiotics with doxycycline and and Rocephin, changed to
cefdinir today. His had progressively increasing LFTs, with a hepatocellular pattern with AST 497 and ALT of 355 with normal total bilirubin and alk phos. Hepatitis B and C serologies were negative. He denies any prior history of liver disease or
hepatitis. Ultrasound imaging of the abdomen was unremarkable for any liver abnormalities. He reports only social alcohol use on the weekends. He has been taking Tylenol every 4 hours into Tuesday but had not been using it above the
recommended dosing on the bottle. Also with hypotension on admission which is since improved with IV fluids.
Problem list:
-Abnormal LFTs, hepatocellular pattern
-Sepsis secondary to right lower lobe pneumonia
-Fatigue, weakness, fevers
-Leukocytosis, resolved
-History of multiple myeloma, monitored with Dr. Gamboa off treatment currently
Other pertinent medical history:
-Hypertension
-Type 2 diabetes
-Sickle cell trait carrier
Recommendations:
-Etiology of abnormal LFTs probably multifactorial given infectious etiology versus DILI versus low flow state given hypotension on admission versus other.
---Ultrasound imaging of the abdomen was normal. LFTs/transaminases have been uptrending. He has no GI complaints. He has no history of high risk behavior such as drugs or alcohol abuse.
-At this time would continue to trend the LFTs.
-Will add hepatitis A IgM and total antibody although I find this less likely given no other GI complaints currently.
-Also check mono and Eugenia-Perdomo virus panel given his significant fatigue/weakness prior to onset
-Would avoid hypotension. Monitor BP closely.
-Consider checking autoimmune markers if not improving.
-Agree to hold statin at this time
-Hold on further tylenol and will check tylenol level
-Management for pneumonia as per hospitalist, if LFTs continue to rise to consider changing antibiotics. Upon review of up-to-date doxycycline has reported hepatotoxicity in rare cases. LiverTox reports a score B with highly likely but rare causes
of clinically apparent liver injury.
-Further plan pending above. Will discuss with Dr. Fatoumata Clark.
Data Reviewed
-
Ultrasound: Report Reviewed by me
-
-
Thank you for consultation and allowing me to participate in the patient's care. Please call the inventory control associate GI physician during the after hours with any questions or concerns.
[2024-03-06 15:00] VITALS: BP 133/77
[2024-03-06 15:13] LABS: Acetaminophen < 10 ug/ml (10-30)
[2024-03-06 16:33] LABS: Monotest Negative (Negative)
[2024-03-06 16:43] LABS: Glucose - Point of Care 135 mg/dl (70-99)
[2024-03-06 16:52] LABS: Hepatitis A IgM Antibody Negative (Negative)
[2024-03-06 17:44] LABS: Hepatitis A Antibody, Total Negative (Negative)
[2024-03-06] MEDS: LOVENOX 40 MG SC (18:10)
[2024-03-06 19:09] VITALS: BP 115/72
[2024-03-06 21:54] LABS: Glucose - Point of Care 126 mg/dl (70-99)
[2024-03-06 23:15] VITALS: BP 129/67
--- NOTE | 2024-03-07 03:00 | DOWNTIME ---
There was a [employer] Client Mixing Roll Operator Downtime on 03/07/2024 from 0100 to 03/07/2024 at 0255. Downtime documentation of patient's care, including medication administrations, has been reconciled in the electronic record per guidelines. Refer to the
patient's paper chart under the miscellaneous tab to see printed paper medication records and downtime forms.
[2024-03-07 03:58] VITALS: BP 140/65
[2024-03-07 06:00] VITALS: BMI 27.1
[2024-03-07 06:23] LABS: Hematocrit 33.2 % (39.0-52.0); Hemoglobin 12.1 g/dL (13.0-18.0); Mean Corp Hgb Conc. 36.4 g/dL (33.0-37.0); Mean Corpuscular Volume 82.4 fL (80.0-94.0); Mean Platelet Volume 9.1 fL (7.4-10.4); Platelet Count 304 10^3/uL (130-400); Red Blood Cell Count 4.03 10^6/uL (4.70-6.10); Red Cell Dist. Width 14.1 % (11.5-14.5); White Blood Cell Count 8.8 10^3/uL (4.8-10.8)
[2024-03-07 06:27] LABS: ALT (SGPT) 285 U/L (0-50); AST (SGOT) 225 U/L (17-59); Albumin 2.8 g/dl (3.5-5.0); Alkaline Phosphatase 81 U/L (38-126); Blood Urea Nitrogen 20 mg/dl (9-20); Calcium 8.6 mg/dl (8.4-10.2); Carbon Dioxide 24 mmol/L (22-30); Chloride 110 mmol/L (98-107); Estimated Creatinine Clearance 75 ml/min; Glucose 107 mg/dl (70-99); Potassium 4.4 mmol/L (3.5-5.1); Sodium 142 mmol/L (135-145); Total Bilirubin 0.6 mg/dl (0.2-1.3); Total Protein 5.5 g/dl (6.3-8.2); eGFR > 60.00
[2024-03-07 07:00] VITALS: BP 149/80
[2024-03-07 08:00] LABS: Glucose - Point of Care 104 mg/dl (70-99)
[2024-03-07] MEDS: NOVOLOG FLEXPEN-LOW RESISTANCE SC ×2 (08:07→11:38)
[2024-03-07] MEDS: COZAAR 100 MG PO (08:09)
[2024-03-07] MEDS: MUCINEX 1200 MG PO (08:09)
[2024-03-07] MEDS: OMNICEF 300 MG PO (08:09)
--- NOTE | 2024-03-07 08:40 | W.PN.HOSP.TC ---
Today's Communication/Plan
-
Discharge today
Assessment / Plan
Assessment / Plan
Impression:
Patient is a 63y M with PMH significant for hypertension, DM-II and smoldering myeloma who presents to ED complaining of fatigue, fever and cough.
RLL Pneumonia
Sepsis secondary to the above
- Patient presents with fever, leukocytosis and tachypnea with CXR showing R base pneumonia.
- Influenza negative, COVID-negative, blood culture negative
- Improving s/p Rocephin/doxycycline
- Discontinued doxycycline as it can cause hepatotoxicity
- Medically stable for discharge on cefdinir to complete a 7-day course, follow-up with PCP in 1 week
Abnormal LFTs
- Possibly due to infection versus drug-induced liver injury versus transient hypotension upon admission
- Hepatitis panel negative, abdominal ultrasound negative
- Appreciate GI input, doxycycline discontinued
- LFTs downtrending today
- Continue to hold statin upon discharge, needs repeat LFTs in 1 week, prescription provided
Acute hypoxic respiratory insufficiency
- Resolved, currently on room air
DM-II
- A1C 7
- Resumed metformin, continue SSI
Benign Hypertension
- Resumed losartan
Smoldering Myeloma
- Stable. Followed at [facility]. Not on active therapy at this time.
- Follow-up with [facility] Oncology as planned.
DVT Prophylaxis: Lovenox
Code Status: Full
Updated on phone 03/07
Physical Exam
General: No acute distress
HEENT: Normocephalic, Atraumatic, EOMI, MMM
Respiratory: Clear to Auscultation bilaterally
Cardiac: Normal S1/S2, Regular Rate and Rhythm
GI: Soft, Nontender, Nondistended, Normal Bowel Sounds
Extremities: No Clubbing, Cyanosis, or Edema
Neuro: Nonfocal/Grossly Intact
Psych: Calm, Cooperative
Derm: No Visible lesions
Anticipated Discharge: Today
Subjective/Interval History
-
Date of Service: March 07, 2024
Shortness of breath resolved. Cough continues to improve. No fever, no nausea, no vomiting. No abdominal pain.
Objective Data
-
Labs:
Laboratory Results
03/07/24
05:29
WBC 8.8
Hgb 12.1 L
Hct 33.2 L
Plt Count 304
Sodium 142
Potassium 4.4
Chloride 110 H
Carbon Dioxide 24
BUN 20
Creatinine 1.0
Glucose 107 H
Calcium 8.6
Total Bilirubin 0.6
AST 225 H
ALT 285 H
Alkaline Phosphatase 81
Vital Signs:
Vital Signs
Temp Pulse Resp BP Pulse Ox
97.9 F 44 16 149/80 99
03/07/24 07:00 03/07/24 08:09 03/07/24 07:00 03/07/24 08:09 03/07/24 07:00
I&O
03/06/24 03/07/24 03/08/24
06:59 06:59 06:59
Intake Total 800 / 800 1600 / 1600
Balance 800 / 800 1600 / 1600
[2024-03-07] MEDS: GLUCOPHAGE 500 MG PO (09:46)
[2024-03-07 11:00] VITALS: BP 134/78
--- NOTE | 2024-03-07 11:10 | W.DCSUMMARY ---
Discharge Summary
Discharge Data
Date of Admission: 03/03/24
Date of Discharge: 03/07/24
-
Pending Results: No
Hospital Course
Discharge diagnosis:
Community-acquired pneumonia
Sepsis secondary to the above
Acute hypoxic respiratory insufficiency
Transaminitis, probable drug-induced liver injury
Type 2 diabetes
Benign essential hypertension
History of smoldering myeloma
Consults: GI
Chest x-ray:
Right basilar airspace disease suspicious for pneumonia.
Abd US:
Unremarkable abdominal ultrasound.
Hospital course:
63-year-old male with a past medical history of type 2 diabetes, hypertension, and smoldering myeloma was admitted for sepsis secondary to community-acquired pneumonia. Patient was also found to have acute hypoxic respiratory sufficiency requiring
2 L of oxygen. He was influenza negative, COVID-negative. He was treated with IV Rocephin and doxycycline.
After several days, his hypoxia resolved, and he was weaned to room air. His shortness of breath resolved.
Patient was noted to have mildly elevated liver function tests upon admission. Suspect this is likely due to his transient hypotension or infection. His LFTs were monitored, but trended up. He was seen in conjunction with GI. Hepatitis panel was
negative, abdominal ultrasound unremarkable. Patient may have had increasing LFTs due to drug-induced liver injury from doxycycline. His doxycycline was discontinued. His LFTs trended down.
Patient is medically stable for discharge on cefdinir to complete a 7-day course. He has been instructed to hold his atorvastatin until he gets repeat liver function tests with his PCP in 1 week. He has also been counseled to avoid acetaminophen
until his liver function tests normalize. He can take ibuprofen as needed for pain and fever. He needs to follow-up with his primary care doctor in 1 week.
Disposition: Home self-care
Discharge planning: Required 45 minutes
Discharge Plan
-
Patient Disposition: Home (Routine Discharge)
Discharge Diagnosis/Procedures: Pneumonia, transient hypoxia, elevated liver function test, type 2 diabetes, hypertension, history of smoldering myeloma
Condition: Good
Diet: Diabetic, Carb Controlled
Activity: As tolerated
Driving Restrictions: As prior to admission
Blood Work: CMP/blood work with your PCP in 1 week
Referrals:
Myles Grant CRNP [Family Provider] - in one week
Prescriptions:
New
cefdinir 300 mg Capsule
300 mg PO Q12 3 Days Qty: 6 0RF
Continued
metformin 1,000 mg Tablet
500 mg PO BID
losartan 100 mg Tablet
100 mg PO DAILY
Held
atorvastatin 10 mg Tablet
10 mg PO DAILY
Hold Instructions: Resume on 03/21/24.
Discharge Orders:
Discharge Patient (As Directed); Ordered 03/07/24
Ordered By: Sanjay Clark
Discharge Date and Time
Discharge Date/Time: 03/07/24 12:30
Print Language: JORDANIAN
[2024-03-07 11:27] LABS: Glucose - Point of Care 145 mg/dl (70-99)
--- NOTE | 2024-03-07 11:36 | CM ---
Case management following for d/c planning
Chart reviewed, met with pt
For d/c today
Has ride home with
Plan - anticipate home no needs
== END 2024-03-07 12:30 | disposition home or self-care (01) | DRG 871 ==
LOC: 3 WEST ACU 03:05
PROVIDERS: Internal Medicine; ADMITTING PHYSICIAN Hospitalist; ATTENDING PHYSICIAN Family Medicine; CONSULT PHYSICIAN Internal Medicine Gastroenterology; EMERGENCY PHYSICIAN Emergency Medicine; FAMILY PHYSICIAN Registered Nurse
DX: A41.9 Sepsis, unspecified organism (principal); J18.9 Pneumonia, unspecified organism; D84.9 Immunodeficiency, unspecified; E11.9 Type 2 diabetes mellitus without complications; I10 Essential (primary) hypertension; K71.9 Toxic liver disease, unspecified; T36.4X5A Adverse effect of tetracyclines, initial encounter; Y92.239 Unspecified place in hospital as the place of occurrence of the external cause; D47.2 Monoclonal gammopathy; L93.0 Discoid lupus erythematosus; D57.3 Sickle-cell trait; R09.02 Hypoxemia; R06.02 Shortness of breath; Z79.84 Long term (current) use of oral hypoglycemic drugs; Z79.899 Other long term (current) drug therapy; Z11.52 Encounter for screening for COVID-19; Z82.49 Family history of ischemic heart disease and other diseases of the circulatory system
CPT/HCPCS: 71046; 76700; 80048; 80053; 80143; 81003; 81015; 82962; 83036; 83605; 83735; 85025; 85027; 86308; 86663; 86664; 86665; 86705; 86708; 86709; 86803; 87040; 87086; 87340; 87502; 87811; 93005; 96365; 96366; 96375; 99284

== ENCOUNTER → 2024-05-16 13:07 | Outpatient (REF) | payer BC, SELFPAY | LOC: RAD 13:07 | PROVIDERS: ATTENDING PHYSICIAN Registered Nurse | DX: J18.9 Pneumonia, unspecified organism (principal) | CPT/HCPCS: 71046 ==